=== PATIENT | male | born 1990 | race Caucasian/White ===

== ENCOUNTER 2017-04-29 18:48 | Emergency (ER) | payer SELFPAY ==
[~2017-04-29] VITALS: Ht 175.3 cm; Wt 80.4 kg
[~2017-04-29 18:48] MED LIST: AMOXICILLIN875 MG OR; MEDDOSEPAK PO; NO; OMEPRAZOLE20 MG PO
[2017-04-29] MEDS ORDERED: PERCOCET 5/325M1 TAB PO (19:31)
[2017-04-29] MEDS ORDERED: AMOXICILLIN500 MG PO (19:31)
[2017-04-29 19:50] VITALS: BP 144/80
== END 2017-04-29 19:50 | disposition home or self-care (01) | DRG 159 ==
LOC: ED 18:48
DX: K05.10 Chronic gingivitis, plaque induced (principal); F31.9 Bipolar disorder, unspecified; F90.9 Attention-deficit hyperactivity disorder, unspecified type; F17.210 Nicotine dependence, cigarettes, uncomplicated

== ENCOUNTER 2023-12-08 12:47 | Emergency (ER) | payer OTHER ==
[~2023-12-08] VITALS: Ht 175.3 cm; Wt 107.0 kg
[~2023-12-08 12:47] MED LIST changes: +AMOXICILLIN500 MG PO; +PERCOCET 5/325M1 TAB PO
[2023-12-08 14:07] VITALS: BP 144/84
[2023-12-08 14:16] VITALS: BP 132/78
[2023-12-08 15:17] VITALS: BP 140/77
[2023-12-08 15:31] VITALS: BP 127/72
[2023-12-08 15:48] VITALS: BP 127/72
== END 2023-12-08 15:55 | disposition home or self-care (01) | DRG 552 ==
LOC: ED 12:47
DX: M54.50 Low back pain, unspecified (principal); F17.210 Nicotine dependence, cigarettes, uncomplicated; V59.40XA Driver of pick-up truck or van injured in collision with unspecified motor vehicles in traffic accident, initial encounter; Y99.0 Civilian activity done for income or pay

== ENCOUNTER 2025-01-08 11:23 | Emergency (ER) | payer SELFPAY ==
[~2025-01-08] VITALS: Ht 175.3 cm; Wt 116.0 kg
[2025-01-08] MEDS ORDERED: CYCLOBENZAPRINE10 MG PO (12:45)
[2025-01-08] MEDS ORDERED: NAPROXEN500 MG PO (12:45)
[2025-01-08 12:47] VITALS: BP 142/84
== END 2025-01-08 13:07 | disposition home or self-care (01) | DRG 563 ==
LOC: ED 11:23
DX: S39.012A Strain of muscle, fascia and tendon of lower back, initial encounter (principal); X50.0XXA Overexertion from strenuous movement or load, initial encounter; F17.200 Nicotine dependence, unspecified, uncomplicated